=== PATIENT | female | born 1990 | race Caucasian/White ===

== ENCOUNTER 2019-05-07 21:10 | Emergency (ER) | payer SELFPAY ==
[2019-05-07 21:21] VITALS: BP 112/68; PULSE 96; TEMP 99.5
--- NOTE | 2019-05-07 22:38 | PDOC ---
History of Present Illness - General Chief Complaint: Respiratory Stated Complaint: FLU SYMPTOMS Time Seen by Provider: 05/07/19 22:25 - History of Present Illness Initial Comments: 05/07/19 22:35 CHIEF COMPLAINT: body aches HISTORY OF PRESENT ILLNESS: 28 yo F presents to ED with cough and body ache since this morning. Patient states she initially thought she had sinus pressure from allergies but then her son (who is also being evaluated in this ER ) began to have cough and fever this morning as well. Patient reports mild cough but mostly is concerned that she just "doesn't feel well" and has body aches. Denies fever, chills, N/V/D. No recent travel or sick contacts. PAST MEDICAL HISTORY: Denies past medical history FAMILY HISTORY: Denies SOCIAL HISTORY:Denies tobacco, alcohol, illicit drug use. SURGICAL HISTORY: Denies ALLERGIES: No known drug allergies REVIEW OF SYSTEMS General/Constitutional: "I don't feel well." Denies fever or chills. HEENT: Denies change in vision. Denies ear pain or discharge. Denies sore throat. Cardiovascular: Denies chest pain or shortness of breath. Respiratory: Denies cough, wheezing, or hemoptysis. Gastrointestinal: Denies nausea, vomiting, diarrhea or constipation. Denies rectal bleeding. Genitourinary: Denies dysuria, frequency, or change in urination. Musculoskeletal: Myalgias. Skin and breasts: Denies rash or easy bruising. Neurologic: Denies headache, vertigo, loss of consciousness, or loss of sensation. Psychiatric: Denies depression or anxiety. PHYSICAL EXAM General Appearance: Well-appearing, appropriately dressed. No apparent distress , no intoxication. HEENT: EOMI, PERRLA, normal ENT inspection, normal voice, TMs normal, pharynx normal. No conjunctival pallor. No photophobia, scleral icterus. Neck: Supple. Trachea midline. No tenderness, rigidity, carotid bruit, stridor , lymphadenopathy, or thyromegaly. Respiratory/Chest: Lungs CTAB. No shortness of breath, chest tenderness, respiratory distress, accessory muscle use. No crackles, rales, rhonchi, stridor , wheezing, dullness Cardiovascular: RRR. S1, S2. No JVD, murmur, bradycardia, tachycardia. Vascular Pulses: Dorsalis-Pedis (R): 2+, Dorsalis-Pedis (L): 2+ Gastrointestinal/Abdominal: Normal bowel sounds. Abdomen soft, non-distended. No tenderness or rebound tenderness. No organomegaly, pulsatile mass, guarding , hernia, hepatomegaly, splenomegaly. Lymphatic: No adenopathy, tenderness. Musculoskeletal/Extremities: Normal inspection. FROM of all extremities, normal capillary refill. Pelvis Stable. No CVA tenderness. No tenderness to extremities, pedal edema, swelling, erythema or deformity. Integumentary: Appropriate color, dry, warm. No cyanosis, erythema, jaundice or rash Neurologic: lamp shade assembler II-XII intact. Fully oriented, alert. Appropriate mood/affect. Motor strength 5/5. No appreciable EOM palsy, facial droop or sensory deficit. Past History - Past Medical History Allergies/Adverse Reactions: Allergies Allergy/AdvReac Type Severity Reaction Status Date / Time No Known Allergies Allergy Verified 05/07/19 21:21 Home Medications: Ambulatory Orders Ibuprofen [Motrin -] 600 mg PO Q4H PRN #1 tablet 09/20/13 Vitamins (Sjr) - 1 tab PO DAILY #1 09/20/13 Ibuprofen 600 mg PO QID #30 tablet 05/08/19 Anemia: No Asthma: No Cancer: No Cardiac Disorders: No COPD: No Diabetes: No HTN: No Seizures: No Thyroid Disease: No - Reproductive History (#): 3 Para: 2 Cervical CA: No Dysfunctional Uterine Bleeding: No Ectopic : No Endometrial CA: No Polycystic Ovaries: No Therapeutic (s) & number: No Tubal Ligation: No Spontaneous : 0 - Psycho Social/Smoking Cessation Hx Smoking Status: No Smoking History: Never smoked Have you smoked in the past 12 months: No Number of Cigarettes Smoked Daily: 0 Cigars Per Day: 0 Hx Alcohol Use: No Drug/Substance Use Hx: No Substance Use Type: None Hx Substance Use Treatment: No *Physical Exam - Vital Signs Last Vital Signs Temp Pulse Resp BP Pulse Ox 99.5 F 96 H 18 112/68 99 05/07/19 21:18 05/07/19 21:18 05/07/19 21:18 05/07/19 21:18 05/07/19 21:18 Medical Decision Making - Medical Decision Making 05/08/19 01:47 28 yo F presents to ED with cough and body ache since this morning. -flu flu negative. Advised patient to take medication as prescribed and follow up with PCP within the next week. Advised patient of signs and symptoms for return to ED. Patient verbalized understanding and agrees to plan. Discharge - Discharge Information Problems reviewed: Yes Clinical Impression/Diagnosis: URI (upper respiratory infection) Qualifiers: URI type: unspecified viral URI Qualified Code(s): J06.9 - Acute upper respiratory infection, unspecified Condition: Stable Disposition: HOME - Admission No - Additional Discharge Information Prescriptions: Ibuprofen 600 mg PO QID #30 tablet - Follow up/Referral Referrals: Evans Varghese MD [Staff Physician] - - Patient Discharge Instructions Patient Printed Discharge Instructions: DI for Viral Upper Respiratory Infection -- Adult - Post Discharge Activity
== END 2019-05-08 00:15 | disposition home or self-care (01) ==
LOC: JERFT 21:10 → JER 21:10
DX: J06.9 Acute upper respiratory infection, unspecified (principal); B97.89 Other viral agents as the cause of diseases classified elsewhere
CPT/HCPCS: 87804; 99282-25

== ENCOUNTER 2019-05-09 22:01 | Emergency (ER) | payer SELFPAY ==
[2019-05-09] MEDS ORDERED: SODIUM CHLORIDE 0.9% 500 ML INFUS.BAG IV ONE (23:57)
[2019-05-10] MEDS ORDERED: KETOROLAC TROMETHAMINE 30 MG/1 ML VIAL IVPUSH ONE (00:05)
[2019-05-10] MEDS ORDERED: SODIUM CHLORIDE 0.9% 500 ML INFUS.BAG IV ONE (00:05)
[2019-05-10] MEDS ORDERED: ONDANSETRON 4 MG/2 ML VIAL IVPUSH ONE (00:08)
--- NOTE | 2019-05-10 00:16 | PDOC ---
History of Present Illness - General Chief Complaint: Cold Symptoms Stated Complaint: COLD SYMPTOMS Time Seen by Provider: 05/09/19 23:17 History Source: Patient Exam Limitations: No Limitations - History of Present Illness Initial Comments: 05/10/19 00:09 Patient is a 28-year-old female with no past medical history here with complaints of nasal congestion, cough, sore throat, body pain, earache, headache , weakness, dizziness, nausea and vomiting, inability to urinate. Patient states 4 days ago she was in the emergency room with her children who were positive for the flu. She states that she also had flu testing done and it was negative so she has been treating herself with [id number] cold and flu preparations. States she was feeling good until about 5:00 PM when a neighbor gave her an unknown pill, which was for infection from [place]. Patient states after taking the pill she got worse, her voice got low, and started feeling weak. States she has been unable to urinate since yesterday and has associated pain on urination. States only a small amount comes out and whenever she coughs or sneezes she has incontinence. PMD: In [place] PMHX: as above PSOCHX: neg cig, etoh, drug ALL: NKDA GENERAL/CONSTITUTIONAL: [(+) fever or chills. No weakness. No weight change.] HEAD, EYES, EARS, NOSE AND THROAT: [No change in vision. No ear pain or discharge. No sore throat.] CARDIOVASCULAR: [No chest pain or shortness of breath.] RESPIRATORY: [(+) cough, wheezing, or hemoptysis.] GASTROINTESTINAL: [(+) nausea, vomiting, diarrhea or constipation. No rectal bleeding.] GENITOURINARY: [No dysuria, frequency, or change in urination.] MUSCULOSKELETAL: [No joint or muscle swelling or pain. No neck or back pain.] SKIN AND BREASTS: [No rash or easy bruising.] NEUROLOGIC: [(+) headache, vertigo, loss of consciousness, or loss of sensation. ] PSYCHIATRIC: [No depression or anxiety.] ENDOCRINE: [No increased thirst. No abnormal weight change.] HEMATOLOGIC/LYMPHATIC: [No anemia, easy bleeding, or history of blood clots.] ALLERGIC/IMMUNOLOGIC: [No hives or skin allergy. No latex allergy.] GENERAL: [The patient is awake, alert, and fully oriented, in moderate distress. ] HEAD: [Normal with no signs of trauma.] EYES: [Pupils equal, round and reactive to light, extraocular movements intact, sclera anicteric, conjunctiva clear.] ENT: [Ears normal, nares patent, (+) nasal congestion, oropharynx clear without exudates. Moist mucous membranes.] NECK: [Normal range of motion, supple without lymphadenopathy, JVD, or masses.] LUNGS: [Breath sounds equal, clear to auscultation bilaterally. No wheezes, and no crackles.] HEART: [Regular rate and rhythm, normal S1 and S2 without murmur, rub.] ABDOMEN: [Soft, (+) tenderness suprapubic, normoactive bowel sounds. No guarding, no rebound. No masses.] EXTREMITIES: [Normal range of motion, no edema. No clubbing or cyanosis. No cords, erythema, or tenderness.] NEUROLOGICAL: [Cranial nerves II through XII grossly intact. Normal speech, normal gait.] PSYCH: [Normal mood, normal affect.] SKIN: [Warm, Dry, normal turgor, no rashes or lesions noted.] Past History - Past Medical History Allergies/Adverse Reactions: Allergies Allergy/AdvReac Type Severity Reaction Status Date / Time No Known Allergies Allergy Verified 05/09/19 22:37 Home Medications: Ambulatory Orders Ibuprofen [Motrin -] 600 mg PO Q4H PRN #1 tablet 09/20/13 Vitamins (Sjr) - 1 tab PO DAILY #1 09/20/13 Ibuprofen 600 mg PO QID #30 tablet 05/08/19 Anemia: No Asthma: No Cancer: No Cardiac Disorders: No COPD: No Diabetes: No HTN: No Seizures: No Thyroid Disease: No - Reproductive History (#): 3 Para: 2 Cervical CA: No Dysfunctional Uterine Bleeding: No Ectopic : No Endometrial CA: No Polycystic Ovaries: No Therapeutic (s) & number: No Tubal Ligation: No Spontaneous : 0 - Psycho Social/Smoking Cessation Hx Smoking Status: No Smoking History: Never smoked Have you smoked in the past 12 months: No Number of Cigarettes Smoked Daily: 0 Cigars Per Day: 0 Information on smoking cessation initiated: No Hx Alcohol Use: No Drug/Substance Use Hx: No Substance Use Type: None Hx Substance Use Treatment: No *Physical Exam - Vital Signs Last Vital Signs Temp Pulse Resp BP Pulse Ox 102.8 F H 149 H 18 100/66 98 05/09/19 22:34 05/09/19 22:34 05/09/19 22:34 05/09/19 22:34 05/09/19 22:34 ED Treatment Course - LABORATORY CBC & Chemistry Diagram: 05/10/19 00:05 05/10/19 00:05 Medical Decision Making - Medical Decision Making 05/10/19 00:09 Patient is a 28-year-old female with no past medical history here with complaints of nasal congestion, cough, sore throat, body pain, earache, headache , weakness, dizziness, nausea and vomiting, inability to urinate. Patient states 4 days ago she was in the emergency room with her children who were positive for the flu. She states that she also had flu testing done and it was negative so she has been treating herself with [id number] cold and flu preparations. States she was feeling good until about 5:00 PM when a neighbor gave her an unknown pill, which was for infection from [facility]. Patient states after taking the pill she got worse, her voice got low, and started feeling weak. States she has been unable to urinate since yesterday and has associated pain on urination. States only a small amount comes out and whenever she coughs or sneezes she has incontinence. DDX: UTI, viral illness, labs, IVF, antinausea, Toradol, Reassess 05/10/19 01:52 Labs reviewed no acute findings except for influenza A Patient re-eval she is already feeling improved from the treatment Patient is refusing Tamiflu. 0227 repeat vitals done by me pulse of 98, O2 sat is 97% on room air I discussed the physical exam findings, ancillary test results and final diagnoses with the patient. I answered all of the patient's questions. The patient was satisfied with the care received and felt comfortable with the discharge plan and treatment plan. The Patient agrees to follow up with the primary care physician within 24-72 hours. Discharge - Discharge Information Problems reviewed: Yes Clinical Impression/Diagnosis: Influenza A Condition: Stable Disposition: HOME - Follow up/Referral - Patient Discharge Instructions Patient Printed Discharge Instructions: DI for H1N1 Influenza -- Adult Additional Instructions: Your Discharge Instructions: You must call primary care physician within 24 hours to arrange follow-up. Return to the Emergency Department with any new, persistent or worsening symptoms, for fever, chills, SOB, dizziness or any other concerning changes that may occur. Continue Tylenol every 4 hours and Motrin every 6 hours for your fever and pain. Drink lots of fluids, get lots of rest. - Post Discharge Activity
[2019-05-10 00:31] LABS: BASO % 0.1 % (0-2.0); EOS % 0.2 % (0-4.5); HEMATOCRIT 35.4 % (32.4-45.2); HEMOGLOBIN 11.4 GM/dL (10.7-15.3); MCH 24.8 pg (25.7-33.7); MCHC 32.2 g/dl (32.0-36.0); MEAN CELL VOLUME 77.1 fl (80-96); MONO % 7.2 % (3.8-10.2); NEUT % 82.5 % (42.8-82.8); PLATELET COUNT 153 K/MM3 (134-434); RBC 4.59 M/mm3 (3.60-5.2); RDW 15.9 % (11.6-15.6); WHITE BLOOD COUNT 5.3 K/mm3 (4.0-10.0)
[2019-05-10] MEDS ORDERED: ONDANSETRON 4 MG/2 ML VIAL ONE (00:33)
[2019-05-10] MEDS ORDERED: KETOROLAC TROMETHAMINE 30 MG/1 ML VIAL ONE (00:33)
[2019-05-10 00:37] LABS: EPI CELLS 12.2 /HPF (0-5/HPF); HYALINE CASTS 20 /lpf (0-8); PH,URINE 5.5 (5.0-8.0); URINE APPEARANCE CLEAR; URINE BACTERIA 100.1 /hpf (NEGATIVE); URINE BILIRUBIN NEGATIVE (NEGATIVE); URINE COLOR YELLOW; URINE GLUCOSE (UA) NEGATIVE (NEGATIVE); URINE KETONE 3+ (NEGATIVE); URINE LEUK ESTERASE NEGATIVE (NEGATIVE); URINE NITRITE NEGATIVE (NEGATIVE); URINE PROTEIN 1+ (NEGATIVE); URINE RBC 1 /hpf (0-4); URINE WBC 5 /hpf (0-5)
[2019-05-10 01:02] LABS: ALBUMIN 3.9 g/dl (3.4-5.0); ALK PHOS 81 U/L (45-117); ANION GAP 9 MMOL/L (8-16); BILIRUBIN,TOTAL 0.2 mg/dL (0.2-1); BLOOD UREA NITROGEN 8.3 mg/dL (7-18); CALCIUM 8.6 mg/dL (8.5-10.1); CHLORIDE 104 mmol/L (98-107); CO2 24 mmol/L (21-32); CREATININE 0.6 mg/dL (0.55-1.3); GLUCOSE,RANDOM 125 mg/dL (74-106); POTASSIUM 3.7 mmol/L (3.5-5.1); SGOT/AST 23 U/L (15-37); SGPT/ALT 27 U/L (13-61); SODIUM 137 mmol/L (136-145); TOT PROT 7.9 g/dl (6.4-8.2)
[2019-05-10] MEDS ORDERED: DEXAMETHASONE SOD PHOSPHATE 10 MG/1 ML VIAL IVPUSH ONE (01:30)
[2019-05-10] MEDS ORDERED: DEXAMETHASONE SOD PHOSPHATE 10 MG/1 ML VIAL ONE (01:49)
[2019-05-10 02:14] VITALS: BP 104/67; PULSE 102
[2019-05-10] MEDS ORDERED: ACETAMINOPHEN 500 MG TABLET (FP) PO ONE (02:25)
[2019-05-10] MEDS ORDERED: ACETAMINOPHEN 325 MG TABLET (FP) ONE (02:38)
[2019-05-10 03:19] VITALS: TEMP 99.1
== END 2019-05-10 03:15 | disposition home or self-care (01) ==
LOC: JER 22:01
PROC: 3E033GC Introduction of Other Therapeutic Substance into Peripheral Vein, Percutaneous Approach (ICD-10-PCS; principal; 2019-05-09)
PROC: 3E0333Z Introduction of Anti-inflammatory into Peripheral Vein, Percutaneous Approach (ICD-10-PCS; 2019-05-09)
PROC: 3E0333Z Introduction of Anti-inflammatory into Peripheral Vein, Percutaneous Approach (ICD-10-PCS; 2019-05-09)
DX: J09.X2 Influenza due to identified novel influenza A virus with other respiratory manifestations (principal); R33.8 Other retention of urine; R10.30 Lower abdominal pain, unspecified
CPT/HCPCS: 36415; 80053; 81003; 84702; 85025; 87070; 87086; 87804; 87880; 99285-25; J1100

== ENCOUNTER 2021-10-09 15:49 | Emergency (ER) | payer SELFPAY ==
[2021-10-09 16:02] VITALS: BP 110/58; PULSE 80; TEMP 98.6; BMI 28.3
[2021-10-09] MEDS ORDERED: PANTOPRAZOLE SODIUM 40 MG VIAL IVPB ONE (17:03)
[2021-10-09] MEDS ORDERED: ONDANSETRON 4 MG/2 ML VIAL IVPUSH ONE (17:03)
[2021-10-09] MEDS ORDERED: SODIUM CHLORIDE 1,000 ML IV STA (17:03)
[2021-10-09] MEDS ORDERED: DICYCLOMINE HCL 20 MG TABLET PO ONE (17:03)
[2021-10-09] MEDS ORDERED: ONDANSETRON 4 MG/2 ML VIAL ONE (17:18)
[2021-10-09] MEDS ORDERED: PANTOPRAZOLE SODIUM 40 MG/100 ML BAG IVPB ONE (17:38)
[2021-10-09] MEDS ORDERED: DICYCLOMINE HCL 10 MG CAPSULE ONE (17:38)
[2021-10-09 18:47] LABS: BASO % 0.5 % (0-2.0); EOS % 4.2 % (0-4.5); HEMATOCRIT 30.5 % (32.4-45.2); HEMOGLOBIN 9.6 GM/dL (10.7-15.3); LYMPH % 26.2 % (8-40); MCH 22.8 pg (25.7-33.7); MCHC 31.6 g/dl (32.0-36.0); MEAN CELL VOLUME 72.1 fl (80-96); MEAN PLT VOLUME 8.3 fl (7.5-11.1); MONO % 6.4 % (3.8-10.2); NEUT % 62.7 % (42.8-82.8); PLATELET COUNT 260 10^3/uL (134-434); RBC 4.23 M/mm3 (3.60-5.2); RDW 15.9 % (11.6-15.6); WHITE BLOOD COUNT 5.6 K/mm3 (4.0-10.0)
[2021-10-09 19:35] LABS: BLOOD UREA NITROGEN 7.3 mg/dL (7-18); CALCIUM 8.7 mg/dL (8.5-10.1)
[2021-10-09 19:36] LABS: ALBUMIN 3.7 g/dl (3.4-5.0); MAGNESIUM 2.1 mg/dL (1.8-2.4)
[2021-10-09 19:39] LABS: CREATININE 0.5 mg/dL (0.55-1.3)
[2021-10-09 19:40] LABS: TOT PROT 7.6 g/dl (6.4-8.2)
[2021-10-09 19:41] LABS: BILIRUBIN,TOTAL 0.3 mg/dL (0.2-1)
[2021-10-09 20:34] LABS: HCG,QUALITATIVE URINE Negative
[2021-10-09 20:52] LABS: EPI CELLS 10 /uL (0-25.1); HYALINE CASTS 1 /uL (0-3.1); PH,URINE 5.5 (5.0-8.0); URINE APPEARANCE CLEAR; URINE BACTERIA 303 /uL (0-1359); URINE BILIRUBIN NEGATIVE (NEGATIVE); URINE COLOR YELLOW; URINE GLUCOSE (UA) NEGATIVE (NEGATIVE); URINE KETONE NEGATIVE (NEGATIVE); URINE LEUK ESTERASE NEGATIVE (NEGATIVE); URINE NITRITE NEGATIVE (NEGATIVE); URINE PROTEIN NEGATIVE (NEGATIVE); URINE RBC 7 /uL (0-23.9); URINE UROBILINOGEN 0.2 mg/dL (0.2-1.0); URINE WBC 9 /uL (0-25.8)
== END 2021-10-09 21:23 | disposition home or self-care (01) ==
LOC: JER 15:49
PROC: 3E033GC Introduction of Other Therapeutic Substance into Peripheral Vein, Percutaneous Approach (ICD-10-PCS; principal; 2021-10-09)
PROC: 3E033GC Introduction of Other Therapeutic Substance into Peripheral Vein, Percutaneous Approach (ICD-10-PCS; 2021-10-09)
PROC: 3E0337Z Introduction of Electrolytic and Water Balance Substance into Peripheral Vein, Percutaneous Approach (ICD-10-PCS; 2021-10-09)
DX: K21.9 Gastro-esophageal reflux disease without esophagitis (principal)
CPT/HCPCS: 36415; 76705-TC; 80053; 81003; 83690; 83735; 84703; 85025; 93005; 93010; 99285-25